=== PATIENT | male | born 1940 | race Two or more races ===

== ENCOUNTER 2022-09-26 21:31 | Emergency (ER) | payer OTHER ==
[~2022-09-26] VITALS: Ht 177.8 cm; Wt 84.4 kg
--- NOTE | 2022-09-26 21:41 | NUR ---
PT [id number] FROM HOME, C/O GENERALIZED WEAKNESS X 3 DAYS. PT AAOX4, IN NAD, PLACED IN BED, VITALS CHECKED.
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
--- NOTE | 2022-09-26 21:44 | NUR ---
EKG DONE AT BEDSIDE
[2022-09-26] MEDS ORDERED: IV NS 0.9% 500 ML BAG IV ONE (22:00)
--- NOTE | 2022-09-26 22:07 | NUR ---
REGGIE DRISCOLL DAUGHTER: [phone]
[2022-09-26 22:22] LABS: BASOPHILS # (AUTO) 0.1 K/uL (0.0-0.2); BASOPHILS % (AUTO) 0.2 % (0.0-2.0); HEMATOCRIT 34 % (39-51); HEMOGLOBIN 11.1 g/dL (13.5-17.5); LYMPHOCYTES # (AUTO) 0.8 K/uL (0.8-4.8); LYMPHOCYTES % (AUTO) 3.6 % (20.0-44.0); MEAN CORPUSCULAR HGB CONC 33 g/dl (31.0-36.0); MEAN CORPUSCULAR VOLUME 89 fL (80-96); MONOCYTES % (AUTO) 8.9 % (2.0-12.0); NEUTROPHILS % (AUTO) 87.3 % (43.0-81.0); PLATELET COUNT (AUTO) 253 K/uL (150-450); RED BLOOD CELL COUNT(AUTO) 3.84 MIL/uL (4.5-6.0); WHITE BLOOD COUNT (AUTO) 22.9 K/uL (4.3-11.0)
--- NOTE | 2022-09-26 22:40 | NUR ---
URINE COLLECTED, SENT TO LAB
--- NOTE | 2022-09-26 22:42 | NUR ---
TO CT W/ TECH
[2022-09-26 22:48] LABS: ALANINE AMINOTRANSFERASE 53 U/L (12-78); ALBUMIN 2.4 g/dL (3.4-5.0); ALKALINE PHOSPHATASE 110 U/L (46-116); ASPARTATE AMINOTRANSFERASE 145 U/L (15-37); BILIRUBIN,DIRECT 0.4 mg/dL (0.0-0.2); BILIRUBIN,TOTAL 1.1 mg/dL (0.2-1.0); CALCIUM, SERUM 8.5 mg/dL (8.5-10.1); CARBON DIOXIDE 23 mmol/L (21-32); CHLORIDE 98 mmol/L (98-107); CREATININE 3.3 mg/dL (0.6-1.3); GLUCOSE 167 mg/dL (74-106); POTASSIUM 3.9 mmol/L (3.5-5.1); SODIUM SERUM 132 mmol/L (136-145); TOTAL PROTEIN, SERUM 6.5 g/dL (6.4-8.2); UREA NITROGEN, BLOOD 44 mg/dL (7-18)
--- NOTE | 2022-09-26 23:00 | NUR ---
PT BACK FROM CT
[2022-09-26 23:20] LABS: BILIRUBIN,URINE NEGATIVE (NEGATIVE); COLOR,URINE DARK YELLOW (YELLOW); LEUKOCYTE ESTERASE ,URINE 3+ (NEGATIVE); NITRITE, URINE NEGATIVE (NEGATIVE); PH,URINE 6.5 (5.0-8.0); PROTEIN,URINE 3+ mg/dl (NEGATIVE); UGLUCOSE NEGATIVE (NEGATIVE); UROBILINOGEN,URINE 0.2 EU/dL (0.2)
[2022-09-26 23:27] LABS: BACTERIA,URINE Few /HPF (None Seen); SQUAMOUS EPITHELIAL CELL,UR Few /HPF (None Seen)
[2022-09-26] MEDS ORDERED: ASPIRIN 325 MG TABLET ONE (23:29)
[2022-09-26] MEDS ORDERED: ASPIRIN 325 MG TABLET PO ONE (23:30)
--- NOTE | 2022-09-26 23:50 | NUR ---
[facility] CALLED, AWAITING CALL BACK FROM [facility].
[2022-09-27] MEDS ORDERED: CEFTRIAXONE 1GM BAG (ER ONLY) 1 GM/50 ML PIGGYBACK IV ONE
[2022-09-27] MEDS ORDERED: CEFTRIAXONE 1GM BAG (ER ONLY) 50 ML IV ONE (00:01)
--- NOTE | 2022-09-27 01:12 | NUR ---
S/W ANGELICA SANTA/[facility] FOR COVID RESULT; NOTIFIED HER RESULT IS STILL PENDING
--- NOTE | 2022-09-27 01:47 | NUR ---
S/W ANGELICA FROM [facility], NOTIFIED HER OF PATIENT'S NEGATIVE COVID RESULT
--- NOTE | 2022-09-27 02:14 | NUR ---
NOTIFIED ANGELICA FROM [facility] ABOUT RISING TROPONIN LEVELS, SHE WILL MAKE THE SANTA MD AWARE AND CALL BACK.
--- NOTE | 2022-09-27 02:33 | NUR ---
TRANSFER INFO:PER ANGELICA GREGG [facility] ROOM [id number] NUMBER FOR REPORT: [phone] DR JOHNSON TRANSPORT: [facility] [id number]
--- NOTE | 2022-09-27 03:28 | NUR ---
REPORT GIVEN TO ARGELIA AT [facility] [phone]
[2022-09-27] MEDS ORDERED: ONDANSETRON HCL/PF 4 MG/2 ML VIAL ONE (04:34)
--- NOTE | 2022-09-27 04:48 | NUR ---
PATIENT W/ EMESIS X1; GIVEN ZOFRAN 4MG IV X1. TRANSPORTED TO [facility] VIA [facility].
[2022-09-27 04:49] VITALS: BP 94/65
[2022-09-27] MEDS ORDERED: ONDANSETRON HCL/PF 4 MG/2 ML VIAL IV ONE (05:00)
== END 2022-09-27 04:48 | disposition short-term general hospital (02) ==
LOC: ER 21:33
DX: I21.4 Non-ST elevation (NSTEMI) myocardial infarction (principal); N39.0 Urinary tract infection, site not specified; N18.9 Chronic kidney disease, unspecified; R51.9 Headache, unspecified; Z20.822 Contact with and (suspected) exposure to COVID-19
CPT/HCPCS: 99291; 70450; 96361; 87426; 93005; 71045; 85025; 80048; 87086; 83605 ×2; 80076; 81001; 36415 ×2; 84484 ×2; 85730; 96365; 96375; J7040; C9803; J2405; J0696